=== PATIENT | male | born 1985 | race Caucasian/White ===

== ENCOUNTER 2018-03-12 17:13 | Emergency (ER) | payer OTHER, BC, SELFPAY ==
[2018-03-12 17:15] VITALS: BP 129/87; PULSE 73; RESP 18; TEMP 36.7; O2SAT 99; BMI 21.7
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
== END 2018-03-12 18:26 | disposition home or self-care (01) ==
PROVIDERS: Emergency Provider Emergency Medicine; Family Provider Family Medicine; PCP Family Medicine
DX: S16.1XXA Strain of muscle, fascia and tendon at neck level, initial encounter (principal); V43.52XA Car driver injured in collision with other type car in traffic accident, initial encounter; Y93.I9 Activity, other involving external motion; Y92.410 Unspecified street and highway as the place of occurrence of the external cause; Y99.8 Other external cause status
CPT/HCPCS: 99283

== ENCOUNTER → 2021-04-09 09:04 | Outpatient (CLI) | payer BC, SELFPAY ==
[2018-03-14 10:59] VITALS: BMI 20.5
[2021-04-09 10:37] LABS: Alanine Aminotransfer ALT/SGPT 20 U/L (16-61); Cholesterol 121 mg/dL (200); Creatinine, Serum 0.94 mg/dL (0.70-1.30); EST Glomerular Filtration Rate 96 mL/min (>60); Est Glom Filt Rate - Afr Amer 116 mL/min (>60); High Density Lipoprotein 52 mg/dL
== END ==
PROVIDERS: PCP Family Medicine; Referring Provider Family Medicine; Visit Provider Family Medicine
DX: Z13.220 Encounter for screening for lipoid disorders (principal)
CPT/HCPCS: 36415; 82465; 82565; 83718; 84460

== ENCOUNTER → 2025-07-08 | Outpatient (CLI) | payer BC, SELFPAY ==
--- NOTE | 2025-07-08 06:49 | MRI_ITS ---
PROCEDURE: UPPER EXT NO JOINT W/WO CONT 07/08/2025 REASON FOR EXAM: RIGHT HAND TUMOR localized swelling, mass lump, 4th metacarpophalangeal joint, right hand TECHNIQUE: Procedure Code: [id number] Modality: MR Procedure: UPPER EXT NO JOINT W/WO CONT CONTRAST: 15 cc Clariscan T1, T2, postcontrast T1 fat-sat images of the right hand COMPARISON: None FINDINGS: There is a ganglion at the proximal 3rd of the 4th flexor tendon sheath measuring 0.58 x 0.8 x 1.0 cm with a simple appearance, and no suspicious enhancing components. There is normal marrow signal in the included metacarpals and digits. The flexor and extensor tendons appear intact. There is no visible colt injury. There is no erosive disease. MRI/Upper Ext No Joint W/WO Cont IMPRESSION: There is a ganglion at the proximal 3rd of the 4th flexor tendon sheath measuri ng 0.58 x 0.8 x 1.0 cm with a simple appearance, and no suspicious enhancing components. Reading Location: [facility]
--- NOTE | 2025-07-08 07:10 | RAD_ITS ---
PROCEDURE: ORBITS FOR FOREIGN BODY 07/08/2025 REASON FOR EXAM: MRI CLEARNACE TECHNIQUE: Procedure Code: [id number]. Modality: DX Procedure: ORBITS FOR FOREIGN BODY COMPARISON: There is no comparison FINDINGS: Two views of the orbits. There are no visible radiopaque foreign bodies in the region of the orbits. There is opacification of the right maxillary sinus. RAD/Orbits for Foreign Body IMPRESSION: Right maxillary sinus disease 2. There is no suspicious radiopaque foreign bod y. Cleared for MRI. Reading Location: [facility]
--- OUTSIDE RECORDS SUMMARY | 2025-07-08 07:25 | XMS RPT_ITS | CCD ---
Author Organization [facility] Team Providers Care Customer Complaint Service Supervisor Name Role Phone Unavailable Primary Care Provider Unavailreshma Anton MD, Dr. Galeana Primary Care Physician Desean SERRANO, Dr. Galeana Referring Provider [phone] Pretty SERRANO, Dr. Montoya Attending Physician Rosmery SERRANO, Dr. Henry Attending Physician Jan Olsen Attending Unavailable Kervin Anton Referring Unavailable Kervin Anton Primary Care Unavailable Carl Botello Attending Unavailable Kervin Anton Primary Care Unavailable Jan Olsen Attending Unavailable Kervin Anton Referring Unavailable Kervin Anton Primary Care Unavailable Kervin Anton Primary Care Unavailable Minerva Robbins Referring Unavailable Minerva Robbins Attending Unavailable Medications Current Medications Medication Drug Class(es) Dates Sig (Normalized) Sig (Original) amoxicillin 875 mg oral tablet (1 source) Penicillin-class Antibacterial Start: 9 AMOXICILLIN 875 MG TAB Indications: Acute sinusitis, unspecified Take one(1) tablet two(2) times daily. 20 0 02/06/2009 Active benzonatate 100 mg oral capsule (1 source) Non-narcotic Antitussive Start: 4 take 1 capsule by mouth every eight hours as needed benzonatate (TESSALON PERLES) 100 mg capsule Take 1 capsule by mouth three times a day as needed for cough. 21 capsule 0 03/09/2024 Active 12 hr guaiFENesin 1200 mg / pseudoephedrine hydrochloride 120 mg extended release oral tablet (1 source) alpha-Adrenergic Agonist Start: 9 PSEUDOEPHEDRINE-GUAIF ENESIN SR 120 MG-1,200 MG 12 HR TAB Indications: Acute sinusitis, unspecified Take one (1) tablet every twelve (12) hours as directed for sinus cogestion 20 0 02/06/2009 Active methylPREDNISolone (1 source) Corticosteroid Start: 4 End: 4 methylPREDNISolone (MEDROL, GRACIE,) 4 mg Dose-Pack Follow dosing instructions, take with food. 21 tablet 0 03/09/2024 03/15/2024 Active [place] (Nk) (2 sources) Start: 8 [place] (Nk) Active March 14, 2018 12:00am Completed/Discontinued Medications Medication Drug Class(es) Dates Sig (Normalized) Sig (Original) naproxen 500 mg oral tablet (2 sources) Nonsteroidal Anti-inflammatory Drug Start: 03-12-2018 End: 03-14-2018 take 1 tablet by mouth twice daily as needed Naproxen 500 MG tablet Discontinued 500 mg PO TWICE DAILY NEEDED March 12, 2018 12:00am March 14, 2018 11:00am Problems Problem Classification Problem Date Documented Da te Episodic/Chronic Other connective tissue disease (2 sources) Pain in finger; Translations: [Pain in unspecified finger(s)] 05-27-2025 Episodic Other connective tissue disease (4 sources) Dupuytrens contracture of bilateral hands; Translations: [Palmar fascial fibromatosis [Dupuytren]] 05-27-2025 Episodic Other connective tissue disease (4 sources) Triggering of digit; Translations: [Trigger finger, unspecified finger] 05-27-2025 Episodic Other connective tissue disease (1 source) Pain in unspecified finger(s); Translations: [Pain in unspecified finger(s)] Onset: 06-18-2025 Episodic Other skin disorders (1 source) Localized swelling, mass and lump, right upper limb; Translations: [Localized swelling, mass and lump, right upper limb] Onset: 07-04-2025 Episodic Other upper respiratory infections (1 source) Upper respiratory infection; Translations: [Acute upper respiratory infection, unspecified] 03-09-2024 Episodic Sprains and strains (2 sources) Strain of neck muscle; Translations: [Strain of muscle, fascia and tendon at neck level, initial encounter] 03-14-2018 Episodic Results Test Name Value Interpretation Reference Range Tc bruno Plastic Surgery Visit Report on 06-24-2025 Plastic Surgery Visit Report [facility] [address], [address] [place] [address] OFFICE VISIT Date of Service: 06/24/25 MR#: [id number] Acct: [id number] Name: FILIBERTO LEE Rep #: [id number] : 1985 Provider: Dr. Jan Olsen MD Age/Sex: 39/M Location: [facility] Status: Signed Intake Vital Signs 3 03/14/18 10:59 Height 5 ft 11.5 in Intake Visit Reasons: 1 month follow up injection Chief Complaint: follow up injection Is patient in pain?: No Allergies No Known Allergies Allergy (Verified 06/24/25 14:03) Medications 3 ???Medication ???Instructions ???Recorded ???Confirmed ???Type NK 03/14/18 06/24/25 History PFSH Medical History Dupuytren contracture of both hands Back pain Neck pain Severe headache Fatigue Surgical History Hx of knee surgery Social History Smoking Status: Never smoker HPI 1 month follow up injection Details: He presents today for 1 month follow up after undergoing bilateral small finger A1 colt injections for mild dupuytren contracture of both hands which he was diagnosed with at his initial visit on 05/27/25. He noticed some improvement in hand pain especially after frequent use. He found the temporary numbness of his ulnar hands to be an uncomfortable effect from his injection. His right finger triggers more than his left and you can hear an audible snap still. He does not wake up with his fingers stiff or bent. ROS Details General: Denies fever, chills HEENT: Denies headaches, vision changes, sore throat Cardio: Denies chest pain, leg edema Pulmonary: Denies shortness of pain, cough, wheezing GI: Denies nausea, vomiting, diarrhea Exam Details Bilateral upper extremity: Inspection: No contractures, joint deformities, induration or swelling noted. Palpation: Right small finger over A1 colt palpable snap, no focal tenderness. negative tinel's. No snapping or tenderness over left small A1 colt. Well circumscribed, tender to palpation, vicinity to tendon sheath of right ring finger mass. Palpable pretendinous cords to the small and ring fingers in the palms bilaterally consistent with dupuytrens Motor: Bilateral small fingers flexes and extends MCP, PIP, DIP easily and smoothly. Collateral ligaments intact, no jersey or mallet finger. Sensation: Intact to light touch bilaterally Vascular: Well perfused, pink, cap refill <2 sec Supplemental Info After discussing risks, benefits, alternatives for trigger finger/Dupuytrens contracture informed consent was obtained for steroid injection bilateral small finger today. In sterile technique injection sites were cleaned with alcohol swab and 1:1 Kenalog Bupivacaine without epi were injected at A1 colt of bilateral small fingers. No bleeding, patient tolerated the procedure well. Noted to flex and extend MCP, PIP, DIP fully after injections. Xray of bilateral hands obtained today reviewed with Dr. Olsen no bony abnormality. No abnormality noted at right base of ring finger where he feels the lesion. Coding Level of Care Code Off vis,est,level 2 Diagnoses Dupuytren contracture of both hands M72.0 Trigger finger M65.30 Mass of right hand R22.31 Assessment and Plan (No Qualifiers) Assessment and Plan (1) Dupuytren contracture of both hands: Status: Acute Plan: . (2) Trigger finger: Status: Acute (3) Mass of right hand: Status: Acute Plan Dr. Olsen evaluated patient as well and also discussed night splinting for his small finger. He discussed repeat injection in 2 months, or A1 colt release surgery. Dr. Olsen discussed A1 colt release surgery briefly and the postoperative period of rest needed to allow proper healing of his hand. Additionally it may flare up his Dupuytren's. He was encouraged to read up on the surgery and think about it further. We will order MRI with contrast to assess the mass further. He also discussed his predisposition of the disease and possible surgical intervention should it progress despite serial injections. We will follow up in 1 month. He is happy with the plan 06/25/25 1545 Date Jan Olsen MD 06/24/25 [id number] Cosigner Signature: Date (if applicable) Minerva Robbins CC: Normal [facility] Hand Min 3 Viewson Hand Min 3 Views [facility] Services [address] [place] [address] Hand Min 3 Views MR#: [id number] Acct: [id number] Name: FILIBERTO LEE Rep #: [id number] : 1985 M 39 From: Jaden Devi PCP: Dr. Kervin Anton MD Status: DEP AMB Study: Hand Min 3 Views Date of Exam: 05/27/25 Exam# [id number] Ordering Dr: Jan Olsen MD PROCEDURE: HAND MIN 3 VIEWS 05/27/2025 REASON FOR EXAM: GENERALIZED PAIN, NKI TECHNIQUE: Procedure Code: KATLIN Modality: DX Procedure: HAND MIN 3 VIEWS COMPARISON: None RAD/Hand Min 3 Views IMPRESSION: Question nondisplaced fracture at the base of the 3rd metacarpal although this may be due to artifact. If there is continued concern for fracture, consider CT for further evaluation. Minimal soft tissue edema. No radiographic foreign body. No dislocations. Reading Location: [facility] CC: Dr. Kervin Anton MD; Dr. Jan Olsen MD Customer Service Coordinator: Signed Normal [facility] Hand Min 3 Views [facility] [address] [place] [address] Hand Min 3 Views MR#: [id number] Acct: [id number] Name: FILIBERTO LEE Rep #: [id number] : 1985 M 39 From: Jaden Devi PCP: Dr. Kervin Anton MD Status: DEP AMB Study: Hand Min 3 Views Date of Exam: 05/27/25 Exam# [id number] Ordering Dr: Jan Olsen MD PROCEDURE: HAND MIN 3 VIEWS 05/27/2025 REASON FOR EXAM: GENERALIZED PAIN, NO INJURY TECHNIQUE: Procedure Code: KATLIN Modality: DX Procedure: HAND MIN 3 VIEWS COMPARISON: None RAD/Hand Min 3 Views IMPRESSION: No acute fracture or dislocations. No significant degenerative changes. No acute soft tissue abnormalities. No radiographic foreign body. Reading Location: [id number] CC: Dr. Kervin Anton MD; Dr. Jan Olsen MD Customer Service Coordinator: Signed Normal [facility] Plastic Surgery Visit Report on 05-27-2025 Plastic Surgery Visit Report [facility] [address], [address] [place] [address] OFFICE VISIT Date of Service: 05/27/25 MR#: [id number] Acct: [id number] Name: FILIBERTO LEE Rep #: [id number] : 1985 Provider: Dr. Jan Olsen MD Age/Sex: 39/M Location: [facility] [place] Status: Signed Intake Intake Visit Reasons: PAIN IN FINGER Chief Complaint: Posterior neck pain, posterior headache Allergies No Known Allergies Allergy (Verified 03/14/18 11:00) [facility] Medical History (Updated 05/27/25 @ 16:[address] 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 He does not note being more symptomatic depending on the time of the day. His left side has been more symptomatic longer and he notices it with his right side as well. His uncle and grandfather both were symptomatic with something similar needing to snap open their fingers throughout their day. He also notes right finger MCP joint lesion that feels like a ball and rolls under his skin. He denies associated pain, electric shock like symptoms, numbness, tingling. Denies previous hand surgeries. Not a diabetic, nonsmoker. ROS Details General: Denies fever, chills HEENT: Denies headaches, vision changes, sore throat Cardio: Denies chest pain, leg edema Pulmonary: Denies shortness of pain, cough, wheezing GI: Denies nausea, vomiting, diarrhea Exam Details Assessed with Dr. Olsen Bilateral upper extremity Inspection: No contractures, joint deformities, induration or swelling noted. Palpation: Right ring finger MCP joint there's a mobile 1cm well circumscribed area of thickening (over A1 colt), negative tinel's. Mildly tender to palpation. Subtle clicking at A1 colt of right small finger more apparent than left side, but present on both sides. Palpable pretendinous cords to the small and ring fingers in the palms bilaterally consistent with dupuytrens Motor: Bilateral small fingers flexes and extends MCP, PIP, DIP easily and smoothly. Collateral ligaments intact, no jersey or mallet finger. Sensation: Intact to light touch bilaterally Vascular: Well perfused, pink, cap refill <2 sec Office Meds Kenalog 10 mg/mL suspension for injection Performing Provider: Jan Olsen MD Performing Location: [facility] Administered by: Tara Ramírez on 05/27/25 14:49 Dose Route Admin Location Dispensed Lot Number Expiration Date Package [facility] [address] Sign Installer 10 mg intra-articular [employer] 1 mL [id number] 04/28/27 2475-0518-49 [id number] [facility] Comments: 0.25% [facility]upivacaine [facility] 2001 6081-4734-04 LOT [id number] EXP 07/27/2025 Supplemental Info After discussing risks, benefits, alternatives for trigger finger/Dupuytrens contracture informed consent was obtained for steroid injection bilateral small finger today. In sterile technique injection sites were cleaned with alcohol swab and 1:1 Kenalog Bupivacaine without epi were injected at A1 colt of bilateral small fingers. No bleeding, patient tolerated the procedure well. Noted to flex and extend MCP, PIP, DIP fully after injections. Xray of bilateral hands obtained today reviewed with Dr. Olsen no bony abnormality. No abnormality noted at right base of ring finger where he feels the lesion. Coding Level of Care Code Off vis,new,level 3 Diagnoses Dupuytren contracture of both hands M72.0 Trigger finger M65.30 Assessment and Plan (No Qualifiers) Assessment and Plan (1) Dupuytren contracture of both hands: Status: Acute Plan: He was diagnosed with mild Dupuytren's of bilateral small fingers today. Dr. Olsen evaluated patient as well and also discussed splinting however given nature of his work it's not realistic for him. He also discussed his predisposition of the disease and possible surgical intervention should it progress despite serial injections. We will follow up in 1 month. He is happy with the plan. (2) Trigger finger: Status: Acute Plan: Discussed risk benefits and alternatives to steroid injection Discussed risk of tendon rupture He elected to proceed Procedure: Injection to the A1 pulleys of the small fingers on both hands Area was anesthetized with alcohol swab A 50-50 mixture of quarter percent Marcaine and Kenalog 10 was then injected over the A1 colt (more content not included)... [facility] Visit (W[facility] ) FILIBERTO LEE ([id number]) 1985 M Date Time Provider Department 03/09/24 2:30 PM [facility] During your visit today, we recorded the following information about you: Temperature Pulse Respiration Blood pressure 97 degrees 71/minute 18/minute 110/72 Weight 72 kg Roberta Kennedy APRN.CNP 03/09/2024 2:59 PM Signed This note was created using Linebackerriter. Subjective Filiberto Lee is a 38 year old male. 38 year old male with no PMH presents for illness. Acute onset 4 to 5 days ago + cough +productive +chest congestion +sore throat +body aches +fatigue Denies eye, ear or nose Denies N/V/D Has used Mucinex Denies ill contacts Denies tobacco usage The history is provided by the patient. No second language tutor was used. URI He complains of cough. There is no chest tightness, difficulty breathing, frequent throat clearing, hemoptysis, hoarse voice, shortness of breath, sputum production or wheezing. This is a new problem. The current episode started in the past 7 days. The problem occurs constantly. The problem has been unchanged. The cough is productive of sputum and productive. Associated symptoms include a fever, malaise/fatigue, myalgias and a sore throat. Pertinent negatives include no appetite change, chest pain, dyspnea on exertion, ear congestion, ear pain, headaches, heartburn, nasal congestion, orthopnea, PND, postnasal drip, rhinorrhea, sneezing, sweats, trouble swallowing or weight loss. His symptoms are aggravated by nothing. His symptoms are alleviated by nothing. He reports no improvement on treatment. There are no known risk factors for lung disease. There is no history of asthma, bronchiectasis, bronchitis, COPD, emphysema or pneumonia. No past medical history on file. No past surgical history on file. ALLERGIES Patient has no known allergies. MEDICATIONS methylPREDNISolone (MEDROL, GRACIE,) 4 mg Dose-Pack Follow dosing instructions, take with food. benzonatate (TESSALON PERLES) 100 mg capsule Take 1 capsule by mouth three times a day as needed for cough. AMOXICILLIN 875 MG TAB Take one(1) tablet two(2) times daily. (Patient not taking: Reported on 03/09/2024) PSEUDOEPHEDRINE-GUAIF ENESIN SR 120 MG-1,200 MG 12 HR TAB Take one (1) tablet every twelve (12) hours as directed for sinus cogestion (Patient not taking: Reported on 03/09/2024) No family history on file. Social History Tobacco Use Smoking status: Never Smokeless tobacco: Never Tobacco comments: quit 2002 Substance Use Topics Alcohol use: Yes Comment: rare Review of Systems Constitutional: Positive for fever and malaise/fatigue. Negative for appetite change and weight loss. HENT: Positive for congestion and sore throat. Negative for ear pain, hoarse voice, postnasal drip, rhinorrhea, sneezing and trouble swallowing. Eyes: Negative for photophobia, pain, discharge, redness, itching and visual disturbance. Respiratory: Positive for cough. Negative for apnea, hemoptysis, sputum production, shortness of breath and wheezing. Cardiovascular: Negative for chest pain, dyspnea on exertion and PND. Gastrointestinal: Negative for abdominal pain, diarrhea, heartburn, nausea and vomiting. Musculoskeletal: Positive for myalgias. Negative for arthralgias and back pain. Skin: Negative for color change, pallor, rash and wound. Allergic/Immunologic: Negative for environmental allergies, food allergies and immunocompromised state. Neurological: Negative for dizziness, facial asymmetry, light-headedness, numbness and headaches. Hematological: Negative for adenopathy. Does not bruise/bleed easily. Psychiatric/Behaviora l: Negative for agitation and behavioral problems. Objective BP 110/72 Pulse 71 Temp 36.1 ?C (97 ?F) Resp 18 Wt 72 kg (158 lb 11.7 oz) SpO2 99% Physical Exam Vitals and nursing note reviewed. Constitutional: General: He is not in acute distress. Appearance: Normal appearance. He is not ill-appearing, toxic-appearing or diaphoretic. HENT: Head: Normocephalic and atraumatic. Right Ear: External ear normal. Left Ear: External ear normal. Nose: Nose normal. No congestion or rhinorrhea. Mouth/Throat: Mouth: Mucous membranes are moist. Pharynx: Oropharynx is clear. Posterior oropharyngeal erythema present. No oropharyngeal exudate. Eyes: General: Right eye: No discharge. Left eye: No discharge. Extraocular Movements: Extraocular movements intact. Conjunctiva/sclera: Conjunctivae normal. Pupils: Pupils are equal, round, and reactive to light. Cardiovascular: Rate and Rhythm: Normal rate and regular rhythm. Pulses: Normal pulses. Heart sounds: Normal heart sounds. No murmur heard. No friction rub. No gallop. Pulmonary: Effort: Pulmonary effort is normal. No respiratory distress. Breath sounds: Normal breath s (more content not included)... Normal [facility] STREP A MOLECULAR (POC)on Procedural Control Valid [facility] Strep A (POCT) Negative Negative [facility] Vital Signs Date Time Vital Sign Value Performing Clinician Gamalieli delio 03-09-2024 14:34-0400 Body temperature 97 [degF] Roberta Kennedy APRN.MEDIA PLANNER / BUYER Work Phone: [facility] 03-09-2024 14:34-0400 Body weight 72 kg Roberta Kennedy STEWARD/[employer].MEDIA PLANNER / BUYER Work Phone: [facility] 03-09-2024 14:34-0400 Diastolic blood pressure 72 mm[Hg] Roberta Kennedy STEWARD/[employer].MEDIA PLANNER / BUYER Work Phone: [facility] 03-09-2024 14:34-0400 Heart rate 71 /min Roberta Kennedy STEWARD/[employer].MEDIA PLANNER / BUYER Work Phone: [facility] 03-09-2024 14:34-0400 Respiratory rate 18 /min Roberta Kennedy STEWARD/[employer].MEDIA PLANNER / BUYER Work Phone: [facility] 03-09-2024 14:34-0400 SaO2% (BldA) [Mass fraction] 99 % Roberta Kennedy STEWARD/ST[employer]ESS [employer].MEDIA PLANNER / BUYER Work Phone: [facility] 03-09-2024 14:34-0400 Systolic blood pressure 110 mm[Hg] Roberta Kennedy STEWARD/STEW[employer]ESS [employer].MEDIA PLANNER / BUYER Work Phone: [facility] Encounters Encounter Date Encounter Type Care Provider Facility Start: 07-08-2025 ambulatory Kervin Anton Facility:[facility] Start: 06-24-2025 End: 06-24-2025 ambulatory Jan Olsen Facility:[facility] Start: 05-27-2025 End: 05-27-[address] Jan Olsen MD -[facility] Work Phone: Start: 05-27-2025 End: 05-27-[address] Kervin Anton MD Work Phone: -[facility] Start: 03-09-2024 End: 03-09-2024 ambulatory Facility:[facility] Start: 03-09-2024 End: 03-09-2024 Patient encounter procedure Roberta Kennedy STEWARD/[employer].MEDIA PLANNER / BUYER Work Phone: [facility] Comment on above: Upper respiratory tr act infection, unspecified type (Primary Dx) Procedures Date Procedure Procedure Detail Performing Clinician Start: 05-27-2025 End: 05-27-2025 Plain x-ray of hand Dr. Kervin Anton MD Work Phone: Start: 03-09-2024 GIAN Mathew MOLECULAR (POC) Nisreen Busby PA Work Phone: Plan of Treatment Date Care Activity Detail Author Start: 04-28-2024 Influenza vaccination Influenza Vacc ine (#1) [facility] Start: 08-28-2023 Behavioral Health Screening Behavioral Health Screening [facility] Start: 04-28-2023 Covid-19 Vaccine ( season) Covid-19 Vaccine ( season) [facility] Start: 2018 Lipid panel Lipid Screening [facility] Start: 2002 Hepatitis B Vaccine (1 of 3 - 19+ 3-dose series) Hepatitis B Vaccine (1 of 3 - 19+ 3-dose series) [facility] Start: 2002 Urine microalbumin profile DTa P,Tdap,Td Vaccine (1 - Tdap) [facility] Start: 2001 Hepatitis C screening Hepatitis C Sc reening [facility] Start: 2001 HIV screening HIV Screening [facility] Payers Date Payer Category Payer Self-pay 2025 Unknown [id number] 2024 Unknown [employer] PPO [id number] 2024-Present [phone] [address] [place] [address] PPO [id number] 2013 Unknown [id number] Unknown Unknown [id number] Unknown [id number] Unknown [id number] Unknown [id number] Social History Date Type Detail Facility Start: 03-14-2018 End: 03-09-2024 Tobacco smoking status NHIS Never smoked tobacco [facility] Start: 03-09-2024 Tobacco use and exposure Smokeless tobacco non-user [facility] Start: 03-09-2024 Alcohol intake Current drinke r of alcohol (finding) [facility] Start: 03-09-2024 History of Social function [facility] Start: 03-09-2024 Tobacco use panel [facility] Start: 03-09-2024 Tobacco Comment [facility] Start: 1985 Sex Assigned At Not on file C [facility] Start: 1985 Sex Assigned At Male [facility] Progress note 05-27-2025 Note Date & Type Note Facility 05-27-2025 Progress note [facility] Diagnostic study note 05-27-2025 Note Date & Type Note Facility 05-27-2025 Radiology Diagnostic study note [facility] Imaging Services [address] [place] [address] Hand Min 3 Views MR#: [id number] Acct: [id number] Name: FILIBERTO LEE Rep #: [id number] : 1985 M 39 From: Radha Kim MD PCP: Dr. Kervin Anton MD Status: DEP AMB Study:Hand Min 3 Views Date of Exam: Exam# [id number] Ordering Dr: Sierra Olsen MD PROCEDURE: HAND MIN 3 VIEWS 05/27/2025 REASON FOR EXAM: GENERALIZED PAIN, NO INJURY TECHNIQUE: Procedure Code: KATLIN Modality: DX Procedure: HAND MIN 3 VIEWS COMPARISON: None RAD/Hand Min 3 Views IMPRESSION: No acute fracture or dislocations. No significant degenerative changes. No acute soft tissue abnormalities. No radiographic foreign body. Reading Location: [id number] CC: Dr. Kervin Anton MD; Dr. Jan Olsen MD ~ Customer Service Coordinator: Signed [facility] Diagnostic study note 05-27-2025 Note Date & Type Note Facility 05-27-2025 Radiology Diagnostic study note [facility] Imaging Services [address] [place], [place] [id number] Hand Min 3 Views MR#: [id number] Acct: [id number] Name: FILIBERTO LEE Rep #: [id number] : 1985 M 39 From: Radha Kim MD PCP: Dr. Kervin Anton MD Status: DEP AMB Study:Hand Min 3 Views Date of Exam: Exam# [id number] Ordering Dr: Sierra Olsen MD PROCEDURE: HAND MIN 3 VIEWS 05/27/2025 REASON FOR EXAM: GENERALIZED PAIN, NKI TECHNIQUE: Procedure Code: KATLIN Modality: DX Procedure: HAND MIN 3 VIEWS COMPARISON: None RAD/Hand Min 3 Views IMPRESSION: Question nondisplaced fracture at the base of the 3rd metacarpal although this may be due to artifact. If there is continued concern for fracture, consider CT for further evaluation. Minimal soft tissue edema. No radiographic foreign body. No dislocations. Reading Location: [id number] CC: Dr. Kervin Anton MD; Dr. Jan Olsen MD ~ Customer Service Coordinator: Signed [facility] Progress note 05-27-2025 Note Date & Type Note Facility 05-27-2025 Progress note Note Date/Time May 27, 2025 2:49pm [facility] [address] [place] [address], [address] [place] [id number] OFFICE VISIT Date of Service: 05/27/25 MR#: [id number] Acct: [id number] Name: FILIBERTO LEE Rep #: [id number] : 1985 Provider: Dr. Bud Olsen MD Age/Sex: 39/M Location: [email or web address] Status: Signed Intake Intake Visit Reasons: PAIN IN FINGER Chief Complaint: Posterior neck pain, posterior headache Allergies No Known Allergies Allergy (Verified 03/14/18 11:00) [facility] Medical History (Updated 05/27/25 @ 16:[address] 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 He does not note being more symptomatic depending on the time of the day. His left side has been more symptomatic longer and he notices it with his right side as well. His uncle and grandfather both were symptomatic with something similar needing to snap open their fingers throughout their day. He also notes right finger MCP joint lesion that feels like a ball and rolls under his skin. He denies associated pain, electric shock like symptoms, numbness, tingling. Denies previous hand surgeries. Not a diabetic, nonsmoker. ROS Details General: Denies fever, chills HEENT: Denies headaches, vision changes, sore throat Cardio: Denies chest pain, leg edema Pulmonary: Denies shortness of pain, cough, wheezing GI: Denies nausea, vomiting, diarrhea Exam Details Assessed with Dr. Olsen Bilateral upper extremity Inspection: No contractures, joint deformities, induration or swelling noted. Palpation: Right ring finger MCP joint there's a mobile 1cm well circumscribed area of thickening (over A1 colt), negative tinel's. Mildly tender to palpation. Subtle clicking at A1 colt of right small finger more apparent thanleft side, but present on both sides. Palpable pretendinous cords to the small and ring fingers in the palms bilaterally consistent with dupuytrens Motor: Bilateral small fingers flexes and extends MCP, PIP, DIP easily and smoothly. Collateral ligaments intact, no jersey or mallet finger. Sensation: Intact to light touch bilaterally Vascular: Well perfused, pink, cap refill <2 sec Office Meds Kenalog 10 mg/mL suspension for injection Performing Provider: Jan Olsen MD Performing Location: [facility] Administered by: Tara Ramírez on 05/27/25 14:49 Dose Route Admin Location Dispensed Lot Number Expiration Date Pack age NDC NDC Road Sign Installer 10 mg intra-articular [employer] 1 mL [id number] 04/28/27 00 03-0494-20 [id number] [facility] Comments: 0.25% [facility]upivacaine [facility] 2001 1138-3958-52 LOT [id number] EXP 07/27/2025 Supplemental Info After discussing risks, benefits, alternatives for trigger finger/Dupuytrens contracture informed consent was obtained for steroid injection bilateral small finger today. In sterile technique injection sites were cleaned with alcohol swab and 1:1 Kenalog Bupivacaine without epi were injected at A1 colt of bilateral small fingers. No bleeding, patient tolerated the procedure well. Noted to flex and extend MCP, PIP, DIP fully after injections. Xray of bilateral hands obtained today reviewed with Dr. Olsen no bony abnormality. No abnormality noted at right base of ring finger where he feels the lesion. Coding Level of Care Code Off vis,new,level 3 Diagnoses Dupuytren contracture of both hands M72.0 Trigger finger M65.30 Assessment and Plan (No Qualifiers) Assessment and Plan (1) Dupuytren contracture of both hands: Status: Acute Plan: He was diagnosed with mild Dupuytren's of bilateral small fingers today. Dr. Olsen evaluated patient as well and also discussed splinting however given nature of his work it's not realistic for him. He also discussed his predisposition of the disease and possible surgical intervention should it progress despite serial injections. We will follow up in 1 month. He is happy with the plan. (2) Trigger finger: Status: Acute Plan: Discussed risk benefits and alternatives to steroid injection Discussed risk of tendon rupture He elected to proceed Procedure: Injection to the A1 pulleys of the small fingers on both hands Area was anesthetized with alcohol swab A 50-50 mixture of quarter percent Marcaine and Kenalog 10 was then injected over the A1 colt (0.5 cc on both hands) Patient tolerated procedure well and a Band-Aid was applied Follow-up in 1 month 05/27/25 1641 <Electronically signed by Jan Olsen MD> Date _ Jan Olsen MD 05/27/25 0627<Electronically signed by Minerva BAEZ> Cosigner Signature: Date (if applicable) Minerva Robbins CC: ~ [facility] Work Phone: Progress note 03-09-2024 Note Date & Type Note Facility 03-09-2024 Note HNO ID: [id number] Author: ROBERTA KENNEDY APRN.[facility] Service: ? Author Type: Nurse Practitioner Type: Progress Notes Filed: 03/09/2024 14:59 Note Text: This note was created using [employer]. Subjective Filiberto Lee is a 38 year old male. 38 year old male with no PMH presents for illness. Acute onset 4 to 5 days ago + cough +productive +chest congestion +sore throat +body aches +fatigue Denies eye, ear or nose Denies N/V/D Has used Mucinex Denies ill contacts Denies tobacco usage The history is provided by the patient. No second language tutor was used. URI He complains of cough. There is no chest tightness, difficulty breathing, frequent throat clearing, hemoptysis, hoarse voice, shortness of breath, sputum production or wheezing. This is a new problem. The current episode started in the past 7 days. The problem occurs constantly. The problem has been unchanged. The cough is productive of sputum and productive. Associated symptoms include a fever, malaise/fatigue, myalgias and a sore throat. Pertinent negatives include no appetite change, chest pain, dyspnea on exertion, ear congestion, ear pain, headaches, heartburn, nasal congestion, orthopnea, PND, postnasal drip, rhinorrhea, sneezing, sweats, trouble swallowing or weight loss. His symptoms are aggravated by nothing. His symptoms are alleviated by nothing. He reports no improvement on treatment. There are no known risk factors for lung disease. There is no history of asthma, bronchiectasis, bronchitis, COPD, emphysema or pneumonia. No past medical history on file. No past surgical history on file. ALLERGIES Patient has no known allergies. MEDICATIONS methylPREDNISolone (MEDROL, GRACIE,) 4 mg Dose-Pack Follow dosing instructions, take with food. benzonatate (TESSALON PERLES) 100 mg capsule Take 1 capsule by mouth three times a day as needed for cough. AMOXICILLIN 875 MG TAB Take one(1) tablet two(2) times daily. (Patient not taking: Reported on 03/09/2024) PSEUDOEPHEDRINE-GUAIFENESIN SR 120 MG-1,200 MG 12 HR TAB Take one (1) tablet every twelve (12) hours as directed for sinus cogestion (Patient not taking: Reported on 03/09/2024) No family history on file. Social History Tobacco Use Smoking status: Never Smokeless tobacco: Never Tobacco comments: quit 2002 Substance Use Topics Alcohol use: Yes Comment: rare Review of Systems Constitutional: Positive for fever and malaise/fatigue. Negative for appetite change and weight loss. HENT: Positive for congestion and sore throat. Negative for ear pain, hoarse voice, postnasal drip, rhinorrhea, sneezing and trouble swallowing. Eyes: Negative for photophobia, pain, discharge, redness, itching and visual disturbance. Respiratory: Positive for cough. Negative for apnea, hemoptysis, sputum production, shortness of breath and wheezing. Cardiovascular: Negative for chest pain, dyspnea on exertion and PND. Gastrointestinal: Negative for abdominal pain, diarrhea, heartburn, nausea and vomiting. Musculoskeletal: Positive for myalgias. Negative for arthralgias and back pain. Skin: Negative for color change, pallor, rash and wound. Allergic/Immunologic: Negative for environmental allergies, food allergies and immunocompromised state. Neurological: Negative for dizziness, facial asymmetry, light-headedness, numbness and headaches. Hematological: Negative for adenopathy. Does not bruise/bleed easily. Psychiatric/Behavioral: Negative for agitation and behavioral problems. Objective BP 110/72 Pulse 71 Temp 36.1 ?C (97 ?F) Resp 18 Wt 72 kg (158 lb 11.7 oz) SpO2 99% Physical Exam Vitals and nursing note reviewed. Constitutional: General: He is not in acute distress. Appearance: Normal appearance. He is not ill-appearing, toxic-appearing or diaphoretic. HENT: Head: Normocephalic and atraumatic. Right Ear: External ear normal. Left Ear: External ear normal. Nose: Nose normal. No congestion or rhinorrhea. Mouth/Throat: Mouth: Mucous membranes are moist. Pharynx: Oropharynx is clear. Posterior oropharyngeal erythema present. No oropharyngeal exudate. Eyes: General: Right eye: No discharge. Left eye: No discharge. Extraocular Movements: Extraocular movements intact. Conjunctiva/sclera: Conjunctivae normal. Pupils: Pupils are equal, round, and reactive to light. Cardiovascular: Rate and Rhythm: Normal rate and regular rhythm. Pulses: Normal pulses. Heart sounds: Normal heart sounds. No murmur heard. No friction rub. No gallop. Pulmonary: Effort: Pulmonary effort is normal. No respiratory distress. Breath sounds: Normal breath sounds. No stridor. No wheezing, rhonchi or rales. Chest: Chest wall: No tenderness. Abdominal: General: Abdomen is flat. There is no distension. Palpations: Abdomen is soft. There is no mass. Tenderness: There is no abdominal tenderness. There is no guarding or rebound. (more content not included)... [facility] History of Present illness Narrative 03-09-2024 Roberta Kennedy APRN.[facility] - 03/09/2024 2:43 PM EDT Note Date & Type Note Facility 03-09-2024 History of Presen t illness Narrative This note was created using [employer]. Subjective Filiberto Lee is a 38 year old male. 38 year old male with no PMH presents for illness. Acute onset 4 to 5 days ago + cough +productive +chest congestion +sore throat +body aches +fatigue Denies eye, ear or nose Denies N/V/D Has used Mucinex Denies ill contacts Denies tobacco usage The history is provided by the patient. No second language tutor was used. URI He complains of cough. There is no chest tightness, difficulty breathing, frequent throat clearing, hemoptysis, hoarse voice, shortness of breath, sputum production or wheezing. This is a new problem. The current episode started in the past 7 days. The problem occurs constantly. The problem has been unchanged. The cough is productive of sputum and productive. Associated symptoms include a fever, malaise/fatigue, myalgias and a sore throat. Pertinent negatives include no appetite change, chest pain, dyspnea on exertion, ear congestion, ear pain, headaches, heartburn, nasal congestion, orthopnea, PND, postnasal drip, rhinorrhea, sneezing, sweats, trouble swallowing or weight loss. His symptoms are aggravated by nothing. His symptoms are alleviated by nothing. He reports no improvement on treatment. There are no known risk factors for lung disease. There is no history of asthma, bronchiectasis, bronchitis, COPD, emphysema or pneumonia. No past medical history on file. No past surgical history on file. ALLERGIES Patient has no known allergies. MEDICATIONS methylPREDNISolone (MEDROL, GRACIE,) 4 mg Dose-Pack Follow dosing instructions, take with food. benzonatate (TESSALON PERLES) 100 mg capsule Take 1 capsule by mouth three times a day as needed for cough. AMOXICILLIN 875 MG TAB Take one(1) tablet two(2) times daily. (Patient not taking: Reported on 03/09/2024) PSEUDOEPHEDRINE-GUAIFENESIN SR 120 MG-1,200 MG 12 HR TAB Take one (1) tablet every twelve (12) hours as directed for sinus cogestion (Patient not taking: Reported on 03/09/2024) No family history on file. Social History Tobacco Use Smoking status: Never Smokeless tobacco: Never Tobacco comments: quit 2002 Substance Use Topics Alcohol use: Yes Comment: rare Review of Systems Constitutional: Positive for fever and malaise/fatigue. Negative for appetite change and weight loss. HENT: Positive for congestion and sore throat. Negative for ear pain, hoarse voice, postnasal drip, rhinorrhea, sneezing and trouble swallowing. Eyes: Negative for photophobia, pain, discharge, redness, itching and visual disturbance. Respiratory: Positive for cough. Negative for apnea, hemoptysis, sputum production, shortness of breath and wheezing. Cardiovascular: Negative for chest pain, dyspnea on exertion and PND. Gastrointestinal: Negative for abdominal pain, diarrhea, heartburn, nausea and vomiting. Musculoskeletal: Positive for myalgias. Negative for arthralgias and back pain. Skin: Negative for color change, pallor, rash and wound. Allergic/Immunologic: Negative for environmental allergies, food allergies and immunocompromised state. Neurological: Negative for dizziness, facial asymmetry, light-headedness, numbness and headaches. Hematological: Negative for adenopathy. Does not bruise/bleed easily. Psychiatric/Behavioral: Negative for agitation and behavioral problems. Objective BP 110/72 Pulse 71 Temp 36.1 C (97 F) Resp 18 Wt 72 kg (158 lb 11.7 oz) SpO2 99% Physical Exam Vitals and nursing note reviewed. Constitutional: General: He is not in acute distress. Appearance: Normal appearance. He is not ill-appearing, toxic-appearing or diaphoretic. HENT: Head: Normocephalic and atraumatic. Right Ear: External ear normal. Left Ear: External ear normal. Nose: Nose normal. No congestion or rhinorrhea. Mouth/Throat: Mouth: Mucous membranes are moist. Pharynx: Oropharynx is clear. Posterior oropharyngeal erythema present. No oropharyngeal exudate. Eyes: General: Right eye: No discharge. Left eye: No discharge. Extraocular Movements: Extraocular movements intact. Conjunctiva/sclera: Conjunctivae normal. Pupils: Pupils are equal, round, and reactive to light. Cardiovascular: Rate and Rhythm: Normal rate and regular rhythm. Pulses: Normal pulses. Heart sounds: Normal heart sounds. No murmur heard. No friction rub. No gallop. Pulmonary: Effort: Pulmonary effort is normal. No respiratory distress. Breath sounds: Normal breath sounds. No stridor. No wheezing, rhonchi or rales. Chest: Chest wall: No tenderness. Abdominal: General: Abdomen is flat. There is no distension. Palpations: Abdomen is soft. There is no mass. Tenderness: There is no abdominal tenderness. There is no guarding or rebound. Hernia: No hernia is present. Musculoskeletal: General: No swelling, tenderness, deformity or signs of injury. Normal range of motion. Cervical back: Normal range of motion and neck supple. No rigidity or tenderness. Right lower leg: No edema. Left lower leg: No edema. Lymphadenopathy: Cervical: Cervical adenopathy present. Skin: General: Skin is warm and dry. Capillary Refill: Capillary refill takes less than 2 seconds. Coloration: Skin is not jaundiced or pale. Findings: No bruising, lesion or rash. Neurological: General: No focal deficit present. Mental Status: He is alert and oriented to person, place, and time. Cranial Nerves: No cranial nerve deficit. Sensory: No sensory deficit. Motor: No weakness. Coordination: Coordination normal. Gait: Gait normal. Deep Tendon Reflexes: Reflexes normal. Psychiatric: Mood and Affect: Mood normal. Behavior: Behavior normal. Thought Content: Thought content normal. Assessment and Plan ASSESSMENT/PLAN: 1. Upper respiratory tract infection, unspecified type - ICD9: 465.9, ICD10: J06.9 X 2 days No red flags - Discussed viral etiology and rationale for treatment. - Group A strep molecular testing negative - Symptomatic treatment with prn analgesia - Supportive care with fluids and rest - The patient may also use OTC cough and cold meds as needed, warm salt water gargles, throat lozenges and/or OTC throat spray as needed, and nasal saline gtts and suction prn. - Follow up in 3-5 days if symptoms persist or sooner if worsening of symptoms - STREP A MOLECULAR (POC) Roberta Kennedy APRN.[facility] documented in this encounter [facility] Evaluation note Note Date & Type Note Facility Evaluation note Diagnosis Upper respiratory tract infection, unspecified type- Primary documented in this encounter [facility] Evaluation note Note Date & Type Note Facility Evaluation note Diagnosis Onset Date Resolution Dupuytren contracture of both hands acute May 27, 2025 2:01pm Trigger finger acute May 27, 2025 2:01pm [facility] Work Phone: Reason for referral (narrative) Note Date & Type Note Facility Reason for referral (narrative) No reason for referral information available [facility] Work Phone: Summary Purpose Family History No Family History Records FoundNo Family History Records Found Advance Directives No Advanced Directives Records FoundNo Advanced Directives Records Found Chief Complaint and Reason for Visit Chief Complaint Admit Date PAIN IN FINGER May 27, 2025 2:01pm room 12 May 27, 2025 2:21pm Reason for Visit Admit Date Dupuytren contracture of both hands Sept ember 2024 2:01pm Trigger finger May 27, 2025 2:01pm Additional Source Comments Source Comments (unrecognize d section and content) In the event this informatio n is protected by the Federal Confidentiality of Alcohol and Drug Abuse Patient Records regulations: The Federal rules restrict any use of the information to criminally investigate or prosecute any alcohol or drug abuse patient.[facility] Reason for Visit (unrecogniz ed section and content) Reason Comments Sore Throat Cough, congestion, 4 -5 days (unrecognized sect ion and content) No Status Records FoundNo Status Records Found INFORMATION SOURCE (unrecogn ized section and content) DATE CREATED AUTHOR 03/14/2024 [facility] DATE CREATED AUTHOR AUTHOR'S ORGANIZ ATION 07/06/2025 [facility] Care Teams (unrecognized sec tion and content) Team Status: Active Member Role/Relationship Status Dates Dr. Kervin Anton MD Primary care physician Active Team Status: Inactive Member Role/Relationship Status Dates Dr. Kervin Anton MD Primary care physician Active Start: May 27, 2025 End: May 27, 2025 Dr. Kervin Anton MD Referring Provider Active St art: May 27, 2025 End: May 27, 2025 Dr. Jan Olsen MD Attending physician Active Start: May 27, 2025 End: May 27, 2025 Team Status: Inactive Member Role/Relationship Status Dates Dr. Kervin Anton MD Primary care physician Active Start: May 27, 2025 End: May 27, 2025 Dr. Carl Botello MD Attending physician Active Start: May 27, 2025 End: May 27, 2025 Goals (unrecognized section and content) Goals may be documented in a n alternate sectionGoals may be documented in an alternate section FOR RECORDS PERTAINING TO PATIENTS WHO ARE OR HAVE BEEN ENROLLED IN A CHEMICAL DEPENDENCY/SUBSTANCEABUSE PROGRAM, SOME INFORMATION MAY BE OMITTED. This clinical summary was aggregated from multiple sources. Caution should be exercised in using it in the provision of clinical care. This summary normalizes information from multiple sources, and as a consequence, information in this document may materially change the coding, format and clinical context of patient data. In addition, data may be omitted in some cases. CLINICAL DECISIONS SHOULD BE BASED ON THE PRIMARY CLINICAL RECORDS. [employer] provides no warranty or guarantee of the accuracy or completeness of information in this document.
== END | disposition home or self-care (01) ==
PROVIDERS: PCP Family Medicine; Referring Provider Physician Assistant; Visit Provider Physician Assistant
DX: R22.31 Localized swelling, mass and lump, right upper limb (principal)
CPT/HCPCS: 70030; 73220; A9575; A4216